=== PATIENT | female | born 1965 | race Hispanic/Latino ===

== ENCOUNTER 2023-04-02 06:00 | Day surgery (SDC) | payer OTHER ==
[2023-03-28 17:10] VITALS: BP 102/55; PULSE 60; RESP 12
[~2023-04-02] VITALS: Ht 160 cm; Wt 76.4 kg
[2023-04-02] VITALS (9 sets, daily range): BP systolic 87–108; BP diastolic 45–58; PULSE 50–60; RESP 14–20
[~2023-04-02 06:00] MED LIST: CALCIUM PO; FOLI0.8T3 PO; IRON PO; LISI2.5T13 PO; MAG PO; NADO40TA2 PO; PANT40TA54 PO; PRAV20TA4 PO; SAXA1TBM2 PO; VITAMIN B12 PO; ZINC PO; [UNRECOGNIZED DRUG - OTHER] PO
[2023-04-02] MEDS ORDERED: PROPOFOL 10 MG/ML 20ML VIAL IV ONE ×2 (07:12→07:17)
== END 2023-04-02 08:40 | disposition home or self-care (01) ==
LOC: DAH 06:00 → ENDO 06:00
PROVIDERS: ATTEND Internal Medicine
DX: Z12.11 Encounter for screening for malignant neoplasm of colon (principal); K74.69 Other cirrhosis of liver; I85.10 Secondary esophageal varices without bleeding; D12.3 Benign neoplasm of transverse colon; K64.1 Second degree hemorrhoids; K57.30 Diverticulosis of large intestine without perforation or abscess without bleeding; K31.89 Other diseases of stomach and duodenum; I86.4 Gastric varices; I10 Essential (primary) hypertension; E11.9 Type 2 diabetes mellitus without complications; D64.9 Anemia, unspecified; E78.5 Hyperlipidemia, unspecified; Z79.01 Long term (current) use of anticoagulants; Z98.890 Other specified postprocedural states; Z86.010 Personal history of colon polyps
CPT/HCPCS: 81025; 43244; 45380; 82948 ×2; 43239; J2704 ×2; A4620; A4215 ×2; A4223; A7002; A4222; A4221; A4663; A4216; J7030; A4606; J3490